=== PATIENT | female | born 2000 | race Caucasian/White ===

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

== ENCOUNTER → 2020-01-21 | Outpatient (CLI) | payer OTHER ==
--- NOTE | 2020-01-21 14:40 | US ---
EXAMINATION TYPE: US OB >= 14 wk fetus DATE OF EXAM: 01/21/2020 COMPARISON: None CLINICAL HISTORY: Z36 Confirm Dates TECHNIQUE: Transabdominal (TA) GESTATIONAL AGE / DATING Physician Established: Not yet established Dates by LMP: LMP unknown Dates by First Scan: No previous this is first scan ( Dates by Current Scan: (15weeks/3 days) EDC: 07/11/2020 SURVEY IUP: Single PLACENTA: Posterior PREVIA: No Previa ADIA: 12cm Normal CERVICAL LENGTH (transabdominal: norm > 3.0cm): 3.5m BIOMETRY PRESENTATION: Vertex LIE: Longitudinal BPD: 3.0m 15weeks / 4 days HC: 11.1 15weeks / 3 days AC: 9.3m 15weeks / 4 days FL: 1.6m 14weeks / 5 days ESTIMATED WEIGHT IN GRAMS: 115rams ESTIMATED WEIGHT IN LBS/OZ: 0 lbs. 4 oz. HC/AC: 1.2 FL/AC: 17% HEART RATE: 146pm RHYTHM: Normal Normal cephalad presentation. No suspicious cervical thinning. No ultrasound evidence for placenta pr evia. Amniotic fluid index calculated within normal limits. biometry measurements congruent and felt within normal limits. heart tones regular and within normal limits. IMPRESSION: As above. Early second trimester live intrauterine gestation noted.
== END | disposition home or self-care (01) ==
LOC: RADUSWWP 13:42
PROVIDERS: ATTEND Obstetrics & Gynecology
DX: Z36.89 Encounter for other specified antenatal screening (principal); Z3A.15 15 weeks gestation of pregnancy
CPT/HCPCS: 76805

== ENCOUNTER 2020-02-18 16:25 | Emergency (ER) | payer OTHER ==
[2020-02-18] MEDS ORDERED: SODIUM CHLORIDE 0.9% 1,000 ML IV STA (17:20)
[2020-02-18 18:27] LABS: Appearance,Urine Cloudy (Clear); Bacteria,Urine Rare /hpf; Bilirubin,Urine Negative (Negative); Blood,Urine Trace (Negative); Color,Urine Yellow; Glucose,Urine (UA) Negative (Negative); Ketones,Urine 3+ (Negative); Leukocyte Esterase,Urine Large (Negative); Mucus,Urine Occasional /hpf; Nitrite,Urine Negative (Negative); Protein,Urine 1+ (Negative); RBC,Urine 11 /hpf (0-5); Specific Gravity,Urine 1.017 (1.001-1.035); Squamous Epithelial Cell,Urine 6 /hpf (0-4); WBC,Urine 151 /hpf (0-5)
[2020-02-18 18:28] LABS: Basophils % (A) 0 %; Eosinophils # (A) 0.2 k/uL (0-0.7); Eosinophils % (A) 2 %; HCT 38.5 % (34.0-46.0); HGB 12.7 gm/dL (11.4-16.0); Lymphocytes # (A) 0.6 k/uL (1.0-4.8); Lymphocytes % (A) 4 %; MCH 28.3 pg (25.0-35.0); MCV 85.9 fL (80.0-100.0); Mean Platelet Volume 7.7; Monocytes # (A) 0.5 k/uL (0-1.0); Monocytes % (A) 4 %; Neutrophils % (A) 90 %; Platelet Count 207 k/uL (150-450); RBC 4.48 m/uL (3.80-5.40); WBC 14.5 k/uL (4.0-11.0)
[2020-02-18 18:39] LABS: INR 0.9 (<1.2); Partial Thromboplastin Time 24.5 sec (22.0-30.0); Prothrombin Time 9.3 sec (9.0-12.0)
[2020-02-18 18:40] LABS: ALT 44 U/L (4-34); AST 47 U/L (14-36); African American GFR (CKD) >90 (>60 ml/min/1.73 sqM); Albumin 3.5 g/dL (3.5-5.0); Alkaline Phosphatase 117 U/L (38-126); Anion Gap 8 mmol/L; Blood Urea Nitrogen 4 mg/dL (7-17); Carbon Dioxide 19 mmol/L (22-30); Chloride 104 mmol/L (98-107); Glucose 95 mg/dL (74-99); Non-African American GFR(CKD) >90 (>60 ml/min/1.73 sqM); Potassium 3.7 mmol/L (3.5-5.1); Sodium 131 mmol/L (137-145); Total Bilirubin 0.6 mg/dL (0.2-1.3); Total Protein 6.6 g/dL (6.3-8.2)
--- NOTE | 2020-02-18 19:11 | US ---
EXAMINATION TYPE: US OB >= 14 wk fetus DATE OF EXAM: 02/18/2020 COMPARISON: Prior ultrasound January 21, 2020 CLINICAL HISTORY: llq pain, LLQ pain x 6 days. Hx . . TECHNIQUE: Transabdominal (TA) GESTATIONAL AGE / DATING Physician Established: (19 weeks/3 days) EDC: 07/11/2020 Dates by LMP: Unknown Dates by First Scan: (19 weeks/3 days) EDC: 07/11/2020 Dates by Current Scan: (19 weeks/1 day) EDC: 07/13/2020 Beta HCG (if available): Not available SURVEY IUP: Single PLACENTA: Posterior PREVIA: No Previa ADIA: 13.17 cm Normal CERVICAL LENGTH (transabdominal: norm > 3.0cm): 3.25 cm BIOMETRY PRESENTATION: Vertex LIE: Longitudinal BPD: 4.34 cm 19 weeks / 1 day HC: 16.64 cm 19 weeks / 2 days AC: 13.82 cm 19 weeks / 2 days FL: 3.02 cm 19 weeks / 2 days ESTIMATED WEIGHT IN GRAMS: 283.87 grams ESTIMATED WEIGHT IN LBS/OZ: 0 lbs. 10 oz. WEIGHT PERCENTAGE BASED ON ESTABLISHED DATES: 36.9% HC/AC: 1.20 Normal FL/AC: 21.84 HEART RATE: 165 bpm RHYTHM: Normal Redemonstration of known second trimester single intrauterine live gestation. No suspicious cervical thinning. Normal cephalad presentation redemonstrated. No ultrasound evidence for placenta previa. Am niotic fluid index calculated within normal limits. biometry measurements congruent and within normal limits with satisfactory interval growth. IMPRESSION: As above.
[2020-02-18] MEDS ORDERED: MORPHINE SULFATE 4 MG/ML SYRINGE IVP STA (19:39)
[2020-02-18] MEDS ORDERED: PHENAZOPYRIDINE 200 MG TAB PO STA (19:39)
[2020-02-18 20:36] VITALS: BP 127/76
--- NOTE | 2020-02-18 20:48 | ED ---
Abdominal Pain HPI - General Chief Complaint: Abdominal Pain Stated Complaint: 19wks preg, abd pain, vomiting Source: patient Mode of arrival: ambulatory Limitations: no limitations - History of Present Illness Initial Comments: The patient is a 20-year-old female with no past medical history who presents to the emergency department with reported left-sided abdominal pain with radiation to her back. Patient states the pain has been present for the past 3 days. She describes it as cramping sensation. Patient is currently 19 weeks . States that on Sunday she did have mild vaginal bleeding without vaginal discharge. Denies dysuria, hematuria or difficulty voiding. Denies diarrhea, constipation, melenic stools or hematochezia. Patient had some nausea with one episode of vomiting today for which she states that it was dark in color and concerning for blood. Patient follows with Dr. Swain. Last ultrasound was at 15 weeks. States she's had no issues with this in regards to vaginal bleeding, hypertension or high blood sugar. She denies ripping or tearing sensation to her back. No numbness, tingling or weakness into her lower extremity. She has not taken any medications for the pain. Denies history of peptic ulcer disease. Does not drink alcohol and denies use of NSAIDs. No fevers or chills. There are no other alleviating, precipitating or modifying factors - Related Data Home Medications Medication Instructions Recorded Confirmed Acetaminophen Tab [Tylenol] 500 mg PO Q4-6H PRN 02/18/20 02/18/20 Previous Rx's Medication Instructions Recorded Cephalexin [Keflex] 500 mg PO Q6HR #40 cap 02/18/20 Allergies Allergy/AdvReac Type Severity Reaction Status Date / Time No Known Allergies Allergy Verified 02/18/20 17:36 Review of Systems ROS Statement: Those systems with pertinent positive or pertinent negative responses have been documented in the HPI. ROS Other: All systems not noted in ROS Statement are negative. Past Medical History Past Medical History: No Reported History History of Any Multi-Drug Resistant Organisms: None Reported Past Surgical History: Orthopedic Surgery, Tonsillectomy Additional Past Surgical History / Comment(s): right wrist and right elbow Past Anesthesia/Blood Transfusion Reactions: No Reported Reaction Past Psychological History: Anxiety, Depression, Schizoaffective Disorder Smoking Status: Current some day smoker Past Alcohol Use History: Occasional Past Drug Use History: None Reported - Past Family History Mother Family Medical History: No Reported History General Exam Limitations: no limitations General appearance: alert, in no apparent distress Head exam: Present: atraumatic, normocephalic, normal inspection Eye exam: Present: normal appearance, PERRL, EOMI. Absent: scleral icterus, conjunctival injection, periorbital swelling ENT exam: Present: normal exam, mucous membranes moist Neck exam: Present: normal inspection. Absent: tenderness, meningismus, lymphadenopathy Respiratory exam: Present: normal lung sounds bilaterally. Absent: respiratory distress, wheezes, rales, rhonchi, stridor Cardiovascular Exam: Present: normal rhythm, tachycardia, normal heart sounds. Absent: systolic murmur, diastolic murmur, rubs, gallop, clicks GI/Abdominal exam: Present: soft, tenderness (left lower quadrant), normal bowel sounds. Absent: distended, guarding, rebound, rigid Extremities exam: Present: normal inspection, full ROM, normal capillary refill. Absent: tenderness, pedal edema, joint swelling, calf tenderness Back exam: Present: normal inspection Neurological exam: Present: alert, oriented X3, CN II-XII intact Psychiatric exam: Present: normal affect, normal mood Skin exam: Present: warm, dry, intact, normal color. Absent: rash Course Vital Signs 02/18/20 02/18/20 02/18/20 16:54 20:35 21:42 Temperature 99.4 F 98.3 F 98.0 F Pulse Rate 124 H 115 H 110 H Respiratory 18 18 20 Rate Blood Pressure 112/67 127/76 O2 Sat by Pulse 97 97 99 Oximetry Medical Decision Making - Medical Decision Making Upon arrival the patient is placed into room 5. A thorough history and physical exam was performed. Peripheral IV was established. Laboratory states were conducted. Patient's white blood cell count mildly elevated at 14.5. Sodium is 131. Urinalysis is positive for 3+ ketones, trace blood, large leukocyte esterase, 11 red blood cells, 151 white blood cells and rare bacteria. I did perform an ultrasound of the patient's pelvis which does demonstrate second trimester single intrauterine gestation. Heart rate of 165. I did give the patient a dose of Rocephin because of her abnormal UA. Patient does have her vitals obtained and that she continues to remain tachycardic. I did recommend hospital admission as I am concerned for pyelonephritis as the patient is reporting flank pain. I'm also concerned about the patient's hematemesis. The patient adamantly refuses admission. I did discuss the risks of leaving including permit disability and to the patient and to her child. Patient understood this. She is able to recite the risks back to me and continues to want to leave. At this time the patient will be discharged home and given a prescription for Keflex. She must call her primary care doctor in the morning for follow-up. If the patient agrees to hospital admission she should return to the emergency room. Patient understood the severity of her symptoms with abnormal vital signs. Patient was then discharged home - Lab Data Result diagrams: 02/18/20 18:10 02/18/20 18:10 Lab Results 02/18/20 02/18/20 02/18/20 Range/Units 18:02 18:10 18:10 WBC 14.5 H (4.0-11.0) k/uL RBC 4.48 (3.80-5.40) m/uL Hgb 12.7 (11.4-16.0) gm/dL Hct 38.5 (34.0-46.0) % MCV 85.9 (80.0-100.0) fL MCH 28.3 (25.0-35.0) pg MCHC 33.0 (31.0-37.0) g/dL RDW 13.0 (11.5-15.5) % Plt Count 207 (150-450) k/uL Neutrophils % 90 % Lymphocytes % 4 % Monocytes % 4 % Eosinophils % 2 % Basophils % 0 % Neutrophils # 13.0 H (1.3-7.7) k/uL Lymphocytes # 0.6 L (1.0-4.8) k/uL Monocytes # 0.5 (0-1.0) k/uL Eosinophils # 0.2 (0-0.7) k/uL Basophils # 0.0 (0-0.2) k/uL PT (9.0-12.0) sec INR (<1.2) APTT (22.0-30.0) sec Sodium 131 L (137-145) mmol/L Potassium 3.7 (3.5-5.1) mmol/L Chloride 104 (98-107) mmol/L Carbon Dioxide 19 L (22-30) mmol/L Anion Gap 8 mmol/L BUN 4 L (7-17) mg/dL Creatinine 0.38 L (0.52-1.04) mg/dL Est GFR (CKD-EPI)AfAm >90 (>60 ml/min/1.73 sqM) Est GFR (CKD-EPI)NonAf >90 (>60 ml/min/1.73 sqM) Glucose 95 (74-99) mg/dL Plasma Lactic Acid Nolan (0.7-2.0) mmol/L Calcium 9.0 (8.4-10.2) mg/dL Total Bilirubin 0.6 (0.2-1.3) mg/dL AST 47 H (14-36) U/L ALT 44 H (4-34) U/L Alkaline Phosphatase 117 (38-126) U/L Total Protein 6.6 (6.3-8.2) g/dL Albumin 3.5 (3.5-5.0) g/dL Lipase 38 (23-300) U/L Urine Color Yellow Urine Appearance Cloudy H (Clear) Urine pH 8.0 (5.0-8.0) Ur Specific [place] 1.017 (1.001-1.035) Urine Protein 1+ H (Negative) Urine Glucose (UA) Negative (Negative) Urine Ketones 3+ H (Negative) Urine Blood Trace H (Negative) Urine Nitrite Negative (Negative) Urine Bilirubin Negative (Negative) Urine Urobilinogen 2.0 (<2.0) mg/dL Ur Leukocyte Esterase Large H (Negative) Urine RBC 11 H (0-5) /hpf Urine WBC 151 H (0-5) /hpf Ur Squamous Epith Cells 6 H (0-4) /hpf Urine Bacteria Rare H (None) /hpf Urine Mucus Occasional H (None) /hpf Blood Type Blood Type Recheck Bld Type Recheck Status 02/18/20 02/18/20 02/18/20 Range/Units 18:10 18:10 18:10 WBC (4.0-11.0) k/uL RBC (3.80-5.40) m/uL Hgb (11.4-16.0) gm/dL Hct (34.0-46.0) % MCV (80.0-100.0) fL MCH (25.0-35.0) pg MCHC (31.0-37.0) g/dL RDW (11.5-15.5) % Plt Count (150-450) k/uL Neutrophils % % Lymphocytes % % Monocytes % % Eosinophils % % Basophils % % Neutrophils # (1.3-7.7) k/uL Lymphocytes # (1.0-4.8) k/uL Monocytes # (0-1.0) k/uL Eosinophils # (0-0.7) k/uL Basophils # (0-0.2) k/uL PT 9.3 (9.0-12.0) sec INR 0.9 (<1.2) APTT 24.5 (22.0-30.0) sec Sodium (137-145) mmol/L Potassium (3.5-5.1) mmol/L Chloride (98-107) mmol/L Carbon Dioxide (22-30) mmol/L Anion Gap mmol/L BUN (7-17) mg/dL Creatinine (0.52-1.04) mg/dL Est GFR (CKD-EPI)AfAm (>60 ml/min/1.73 sqM) Est GFR (CKD-EPI)NonAf (>60 ml/min/1.73 sqM) Glucose (74-99) mg/dL Plasma Lactic Acid Nolan 0.8 (0.7-2.0) mmol/L Calcium (8.4-10.2) mg/dL Total Bilirubin (0.2-1.3) mg/dL AST (14-36) U/L ALT (4-34) U/L Alkaline Phosphatase (38-126) U/L Total Protein (6.3-8.2) g/dL Albumin (3.5-5.0) g/dL Lipase (23-300) U/L Urine Color Urine Appearance (Clear) Urine pH (5.0-8.0) Ur Specific [place] (1.001-1.035) Urine Protein (Negative) Urine Glucose (UA) (Negative) Urine Ketones (Negative) Urine Blood (Negative) Urine Nitrite (Negative) Urine Bilirubin (Negative) Urine Urobilinogen (<2.0) mg/dL Ur Leukocyte Esterase (Negative) Urine RBC (0-5) /hpf Urine WBC (0-5) /hpf Ur Squamous Epith Cells (0-4) /hpf Urine Bacteria (None) /hpf Urine Mucus (None) /hpf Blood Type O Positive Blood Type Recheck O Pos Bld Type Recheck Status No - EKG Data EKG Comments: EKG demonstrates a sinus tachycardia with a ventricular rate of 116. NM interval 122. Carious 88. QTC of 455. No acute ST segment elevations or depressions concerning for ischemic changes Disposition Clinical Impression: Tachycardia, Pyelonephritis affecting , Second trimester Disposition: HOME SELF-CARE Condition: Serious Instructions (If sedation given, give patient instructions): Kidney Infection (ED), Urinary Tract Infection in (ED) Additional Instructions: I strongly recommended hospital admission. I warned you of the risks of leaving against my recommendation. 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 If you do agree to hospital admission please return to the emergency department. Prescriptions: Cephalexin [Keflex] 500 mg PO Q6HR #40 cap Is patient prescribed a controlled substance at d/c from ED?: No Referrals: John Villagomez DO [Primary Care Provider] - 1-2 days Time of Disposition: 21:17
[2020-02-18 21:44] VITALS: PULSE 110; RESP 20; TEMP 98
== END 2020-02-18 21:42 | disposition home or self-care (01) ==
LOC: EC 16:25
DX: O23.02 Infections of kidney in pregnancy, second trimester (principal); O99.332 Smoking (tobacco) complicating pregnancy, second trimester; O99.89 Other specified diseases and conditions complicating pregnancy, childbirth and the puerperium; B96.89 Other specified bacterial agents as the cause of diseases classified elsewhere; R00.0 Tachycardia, unspecified; F17.200 Nicotine dependence, unspecified, uncomplicated; Z3A.19 19 weeks gestation of pregnancy
CPT/HCPCS: 36415; 93005; 86900; 86901; 80053; 83605; 83690; 85025; 85610; 85730; 81001; 87086; 87077; 87186; 76805; 99284; 96365; 96361 ×2; J0696

== ENCOUNTER 2020-07-07 06:13 | Inpatient (IN) | payer OTHER ==
[2020-07-07] MEDS ORDERED: LACTATED RINGERS 1,000 ML IV ONE (06:33)
[2020-07-07] MEDS ORDERED: CITRIC ACID-SODIUM CITRATE 15 ML CUP PO ONE (06:33)
[2020-07-07] MEDS: LACTATED RINGERS 1,000 ML IV SCH ×2 (06:44→17:13)
[2020-07-07 06:56] LABS: Basophils % (A) 0 %; Eosinophils # (A) 0.1 k/uL (0-0.7); Eosinophils % (A) 1 %; HCT 35.5 % (34.0-46.0); HGB 12.2 gm/dL (11.4-16.0); Lymphocytes % (A) 26 %; MCH 26.6 pg (25.0-35.0); MCHC 34.4 g/dL (31.0-37.0); MCV 77.3 fL (80.0-100.0); Mean Platelet Volume 7.8; Monocytes # (A) 0.4 k/uL (0-1.0); Monocytes % (A) 5 %; Neutrophils # (A) 5.1 k/uL (1.3-7.7); Neutrophils % (A) 66 %; Platelet Count 251 k/uL (150-450); RBC 4.59 m/uL (3.80-5.40); RDW 14.2 % (11.5-15.5); WBC 7.8 k/uL (4.0-11.0)
[2020-07-07] MEDS ORDERED: KETOROLAC 15 MG/ML 1 ML VIAL ONE (08:02)
[2020-07-07] MEDS ORDERED: PHENYLEPHRINE-0.9% NACL SYG 1 MG/10 ML SYRINGE ONE (08:02)
[2020-07-07] MEDS ORDERED: ONDANSETRON 4 MG/2 ML VIAL ONE (08:02)
[2020-07-07] MEDS ORDERED: MORPHINE SULFATE (PF) 0.3 MG/0.3 ML SYR ONE (08:02)
[2020-07-07] MEDS ORDERED: OXYTOCIN 10 UNIT/ML 1 ML VIAL ONE (08:02)
[2020-07-07] MEDS ORDERED: ONDANSETRON 4 MG/2 ML VIAL IVP PRN ×2 (08:37→08:45)
[2020-07-07] MEDS ORDERED: diphenhydrAMINE 50 MG/ML 1 ML VIAL IVP PRN ×3 (08:37→08:45)
[2020-07-07] MEDS ORDERED: MORPHINE SULFATE 2 MG/ML SYRINGE IVP PRN (08:37)
[2020-07-07] MEDS ORDERED: NALOXONE 0.4 MG/ML 1 ML VIAL IV PRN ×2 (08:37→08:45)
[2020-07-07] MEDS ORDERED: METOCLOPRAMIDE 5 MG/ML 2 ML VIAL IVP PRN (08:45)
[2020-07-07] MEDS ORDERED: diphenhydrAMINE 25 MG CAP PO PRN (08:45)
[2020-07-07] MEDS ORDERED: ZOLPIDEM 5 MG TAB PO PRN (08:45)
[2020-07-07] MEDS ORDERED: MEASLES-MUMPS-RUBELLA VACC/PF 12,500 UNIT/0.5 ML VIAL SQ ONE (08:45)
[2020-07-07] MEDS ORDERED: diphenhydrAMINE 50 MG CAP PO PRN (08:45)
[2020-07-07] MEDS ORDERED: LACTATED RINGERS 1,000 ML IV SCH (08:45)
[2020-07-07] MEDS ORDERED: KETOROLAC 15 MG/ML 1 ML VIAL IVP PRN (08:45)
--- NOTE | 2020-07-07 08:48 | P.HPOB ---
History of Present Illness H&P Date: 07/07/20 Chief Complaint: Intrauterine uterine at term: Prior section Patient is a 20-year-old at 39 weeks 3 days' gestation who ryes repeat section. Her Precis course has been generally unremarkable and she is to follow very closely throughout the . She voices no complexes morning. Her vital signs are stable and afebrile. Heart regular, lungs clear, extremities without pain. It is noted she is had chlamydial infection that had continued to be positive but was negative on last exam. All questions were answered for her prior to proceeding to the operating room and her risks/benefits/return reviewed with the patient in great detail and she is aware of risks including bleeding and infection, damage to bladder or bowel, vascular injuries, nerve injuries, ureteral injuries potential need for further surgeries. A category 1 tracing is noted prior to proceeding to the operating room. Past Medical History Past Medical History: No Reported History History of Any Multi-Drug Resistant Organisms: None Reported Past Surgical History: Orthopedic Surgery, Tonsillectomy Additional Past Surgical History / Comment(s): right wrist and right elbow Past Anesthesia/Blood Transfusion Reactions: No Reported Reaction Past Psychological History: Anxiety, Depression, Schizoaffective Disorder Smoking Status: Former smoker Past Alcohol Use History: Occasional Past Drug Use History: None Reported - Past Family History Mother Family Medical History: No Reported History Medications and Allergies Home Medications Medication Instructions Recorded Confirmed Type Pnv No.95/Ferrous Fum/Folic AC 1 tab PO ONCE 07/07/20 07/07/20 History [ Multivitamin Tablet] Allergies Allergy/AdvReac Type Severity Reaction Status Date / Time No Known Allergies Allergy Verified 07/07/20 06:32 Exam Osteopathic Statement: *. No significant issues noted on an osteopathic structural exam other than those noted in the History and Physical/Consult. Vital Signs Temp Pulse Resp BP Pulse Ox 07/07/20 06:31 96.4 F L 119 H 16 139/85 98 Intake and Output 07/06/20 07/07/20 07/07/20 22:59 06:59 14:59 Other: Weight 89.358 kg - OBG Physical Exam Breast: both: normal (no masses) Abdomen: bowel sounds normal, no diffuse tenderness, no bruit present, no guarding noted, no hepatomegaly, no splenomegaly, no mass Vulva: both: normal Vagina: normal moisture, no discharge Cervix: no lesion, no discharge Uterus: normal size, normal contour Adnexa: both: normal Anus/Rectum: normal perianal skin, no rectal mass, no hemorrhoids, heme negative Results Result Diagrams: 07/07/20 06:50 Abnormal Lab Results - Last 24 Hours (Table) 07/07/20 Range/Units 06:50 MCV 77.3 L (80.0-100.0) fL
--- NOTE | 2020-07-07 08:52 | P.OP ---
Date of Procedure: 07/07/20 Preoperative Diagnosis: Intrauterine at term: Prior section Postoperative Diagnosis: Same Procedure(s) Performed: Repeat low transverse section Anesthesia: spinal Surgeon: Vlad Swain Executive Cyber Leader #1: Nita Maza Estimated Blood Loss (ml): 520 IV fluids (ml): 1,500 Urine output (ml): 100 Pathology: none sent Condition: stable Disposition: floor Operative Findings: Male scores 8 and 9 at one and 5 minutes and a weight of 7 lbs. 9 oz. Description of Procedure: Patient was taken to the operating suite where a spinal anesthetic was found be adequate. She was prepped and draped in normal sterile fashion and placed in dorsal supine position with leftward tilt. Initially a Pfannenstiel skin incision was made and this incision was then carried through to the underlying layer of the fascia was second knife. Fascia was then nicked in the midline and this opening was extended laterally with Alcaraz scissors. Superior and inferior aspect of this incision were then grasped tented up and bluntly and sharply dissected off the rectus muscles. Rectus muscles were then divided the midline and sharp dissection through the peritoneum was performed. This opening was then extended superiorly and inferiorly with good visualization of both bowel bladder. Bladder blade was then placed and bladder flap identified. It was entered with metastases from scissors carried across face the uterus and bluntly dissected out of the operative field. Knife was then used to incise uterus and this opening was then extended but we following final entry with a hemostat. Head was then atraumatically delivered with clear fluid noted. Mouth and nares were bulb suctioned anterior posterior shoulders were then easily delivered with gentle downward and upward traction followed by the remainder the baby. Umbilical cord was then clamped and cut in usual fashion an nursery personnel was present to assume care. Placenta was then delivered intact and Pitocin was added to the IV. Uterus was then exteriorized cleared of clots and debris and closed in 2 layers with 0 Vicryl suture. Once excellent hemostasis was felt to be obtained blood and debris was suctioned from the posterior cul-de-sac and clots were removed from the gutters. Uterus was then reinserted into the abdomen and peritoneal layer was identified and delineated with hemostats. It was then closed with 0 Vicryl suture. Fascial layer was then closed with 0 Vicryl suture. One layer of 3-0 Vicryl was placed in deep subcuticular tissues to reapproximate skin and close space. Skin was then closed with 3-0 Vicryl subcuticularly. Sponge, lap, needle counts were all correct 2. Patient was then taken to the recovery room stable
[2020-07-07] MEDS ORDERED: FAMOTIDINE 20 MG/2 ML VIAL IV ONE (11:35)
[2020-07-07] MEDS ORDERED: CALCIUM CARBONATE 500 MG CHEWABLE PO PRN (11:35)
[2020-07-07] MEDS: SENNOSIDES-DOCUSATE SODIUM 1 EACH TAB PO SCH (20:01)
[2020-07-08] MEDS: IBUPROFEN 600 MG TAB PO PRN ×2 (02:26→11:50)
--- NOTE | 2020-07-08 08:18 | P.PN ---
Progress Note - Text Progress Note Date: 07/08/20 (666) Anesthesia Postop day 1 Subjective: Status Post with Duramorph. Patient seen and examined. Doing well without complaint. VAS 2 out of 10. No nausea or vomiting. Mild pruritus tolerable.. Afebrile. Gross lower extremity strength intact. Without apparent anesthetic complications. Objective: Vital signs reviewed Heart: Regular Rate Lungs: Good chest excursion Abdomen: Appears nondistended Assessment: Status post with Duramorph postop day 1 Plan: Continue current care with your medical management. Answered all questions
[2020-07-08] MEDS: SENNOSIDES-DOCUSATE SODIUM 1 EACH TAB PO SCH ×2 (08:59→19:37)
[2020-07-08] MEDS: ACETAMINOPHEN TAB 325 MG TAB PO PRN ×3 (09:00→19:37)
--- NOTE | 2020-07-08 09:04 | P.DS ---
Providers Date of admission: 07/07/20 06:13 Expected date of discharge: 07/08/20 Attending physician: Vlad Swain Primary care physician: Stated None Hospital Course: Huong is doing very well postop day 1. She is requesting discharge to home. We'll monitor through today and assuming that she continues to do well plan discharged to home later today. Prescriptions for pain medication were 4 to the pharmacy of a breast pump was provided. Discharge instructions were thoroughly reviewed and all questions were answered for on her vital signs are stable and afebrile. Heart regular, lungs clear, extremities without pain. Abdomen soft uterus is firm and her incision is clean dry and intact. Assessment postop day 1. Plan discharged home follow up with me in 1 week. Patient Condition at Discharge: Good Plan - Discharge Summary New Discharge Prescriptions: New Ibuprofen [Motrin] 600 mg PO Q6HR PRN #30 tab PRN Reason: Pain HYDROcodone/APAP 5-325MG [[place] 5-325] 1 tab PO Q4HR PRN #30 tab PRN Reason: Pain No Action Pnv No.95/Ferrous Fum/Folic AC [ Multivitamin Tablet] 1 tab PO ONCE Discharge Medication List Pnv No.95/Ferrous Fum/Folic AC [ Multivitamin Tablet] 1 tab PO ONCE 07/07/20 [History] HYDROcodone/APAP 5-325MG [[place] 5-325] 1 tab PO Q4HR PRN #30 tab 07/08/20 [Rx] Ibuprofen [Motrin] 600 mg PO Q6HR PRN #30 tab 07/08/20 [Rx] Follow up Appointment(s)/Referral(s): Vlad Swain DO [Doctor of Osteopathic Medicine] - 1 Week Activity/Diet/Wound Care/Special Instructions: Lifting, limit stairs and driving, and pelvic rest. If any high temperatures, heavy bleeding, or severe pain call my office Discharge Disposition: HOME SELF-CARE
[2020-07-08 09:27] LABS: Basophils % (A) 0 %; Eosinophils # (A) 0.2 k/uL (0-0.7); Eosinophils % (A) 2 %; HCT 35.2 % (34.0-46.0); HGB 11.6 gm/dL (11.4-16.0); Lymphocytes # (A) 2.3 k/uL (1.0-4.8); Lymphocytes % (A) 23 %; MCH 26.3 pg (25.0-35.0); MCHC 33.1 g/dL (31.0-37.0); MCV 79.7 fL (80.0-100.0); Mean Platelet Volume 7.9; Monocytes # (A) 0.6 k/uL (0-1.0); Monocytes % (A) 6 %; Neutrophils % (A) 68 %; Platelet Count 212 k/uL (150-450); RBC 4.42 m/uL (3.80-5.40); RDW 14.5 % (11.5-15.5); WBC 10.2 k/uL (4.0-11.0)
[2020-07-08] MEDS: HYDROcodone/APAP 7.5-325MG 1 EACH TAB PO PRN (17:39)
[2020-07-08 23:33] VITALS: TEMP 98
[2020-07-09] MEDS: IBUPROFEN 600 MG TAB PO PRN ×2 (00:50→08:14)
[2020-07-09 09:10] VITALS: BP 141/86; PULSE 83
[2020-07-09] MEDS: SENNOSIDES-DOCUSATE SODIUM 1 EACH TAB PO SCH (09:15)
[2020-07-09 10:16] VITALS: RESP 16
[2020-07-09] MEDS: HYDROcodone/APAP 7.5-325MG 1 EACH TAB PO PRN (10:35)
== END 2020-07-09 11:54 | disposition home or self-care (01) | DRG 788 ==
LOC: 4FBP 06:13
PROVIDERS: ADMIT Obstetrics & Gynecology; ATTEND Obstetrics & Gynecology
PROC: 10D00Z1 Extraction of Products of Conception, Low, Open Approach (ICD-10-PCS; principal; 2020-07-07 08:00)
DX: O34.211 Maternal care for low transverse scar from previous cesarean delivery (principal); O99.344 Other mental disorders complicating childbirth; F25.9 Schizoaffective disorder, unspecified; F32.9 Major depressive disorder, single episode, unspecified; F41.9 Anxiety disorder, unspecified; O98.819 Other maternal infectious and parasitic diseases complicating pregnancy, unspecified trimester; L29.9 Pruritus, unspecified; Z37.0 Single live birth; Z3A.39 39 weeks gestation of pregnancy; Z87.891 Personal history of nicotine dependence; Z90.89 Acquired absence of other organs
CPT/HCPCS: 85025; 86850; 86900; 86901

== ENCOUNTER → 2022-03-27 | Outpatient (CLI) | payer OTHER ==
--- NOTE | 2022-03-27 18:26 | US ---
EXAMINATION TYPE: Ultrasound OB <= 14 week fetus DATE OF EXAM: 03/27/2022 3:51 PM COMPARISON: 08/07/2018 CLINICAL HISTORY: 22-year-old female Z36.89 GESTATIONAL AGE CONFIRMATION. Confirm Dates EXAM PERFORMED: Transabdominal (TA) FINDINGS: EXAM MEASUREMENTS: GESTATIONAL AGE / DATING Physician Established: (12 weeks/0 days) EDC: 10/09/2022 Dates by LMP: LMP unknown Dates by First Scan: No previous this is first scan Dates by Current Scan for: (12 weeks/0 days) EDC: 10/09/2022 MATERNAL ANATOMY Uterus: 11.5 x 7.3 x 8.8 cm Right Ovary: 3.6 x 2.0 x 3.6 cm. Echogenic focus within right Ovary= 0.9 x 0.6 x 0.9 cm could repres ent a calcification or a small ovarian dermoid. Left Ovary: 3.9 x 3.4 x 4.8 cm Post CDS / Adnexa: wnl Presence of free fluid: No Presence of corpus luteal cyst: Possibly in the left ovary: Cystic lesion with septation= 3.9 x 2.7 x 3.7 cm Presence of subchorionic bleed: No GESTATION / SURVEY CRL: 5.4 cm (12 weeks/0 days) MSD: wnl Heart Rate: 162 bpm Rhythm: Normal IUP: Viable IUP Nuchal Translucency 10-14wks (normal less than 3mm): 1mm Age Appropriate Anatomy Limbs: Visualized IMPRESSION: 1. Single live anterior with established gestational age of 12 weeks 0 days. Current ultras ound biometry is exactly concordant. 2. A septated cyst measuring 3.9 cm within the left ovary. Possible corpus luteum. Short interval fol low-up to ensure involution. 3. A 9 mm echogenic focus within the right ovary could represent a calcification or small ovarian anastasia moid. 4. Complete survey recommended at 18-20 weeks.
== END | disposition home or self-care (01) ==
LOC: RADUSWWP 15:33
PROVIDERS: ATTEND Obstetrics & Gynecology
DX: Z36.89 Encounter for other specified antenatal screening (principal); Z3A.12 12 weeks gestation of pregnancy
CPT/HCPCS: 76801; 76813

== ENCOUNTER 2022-05-26 17:15 | Outpatient (CLI) | payer OTHER ==
[2022-05-26 18:10] LABS: Appearance,Urine Cloudy (Clear); Bacteria,Urine Few /hpf; Bilirubin,Urine Negative (Negative); Blood,Urine Negative (Negative); Color,Urine Yellow; Glucose,Urine (UA) Negative (Negative); Ketones,Urine 2+ (Negative); Leukocyte Esterase,Urine Trace (Negative); Mucus,Urine Rare /hpf; Nitrite,Urine Negative (Negative); PH, Urine 7.5 (5.0-8.0); Protein,Urine Negative (Negative); RBC,Urine 1 /hpf (0-5); Specific Gravity,Urine 1.013 (1.001-1.035); Squamous Epithelial Cell,Urine 3 /hpf (0-4); WBC,Urine 6 /hpf (0-5)
[2022-05-26] MEDS ORDERED: ACETAMINOPHEN TAB 500 MG TAB PO STA (18:46)
[2022-05-26] MEDS: LACTATED RINGERS 1,000 ML IV SCH ×2 (18:59→20:56)
[2022-05-26 20:48] VITALS: BP 145/68; PULSE 136; RESP 18; TEMP 98.1
--- NOTE | 2022-05-27 09:35 | P.MSEPDOC ---
Presenting Problems - Arrival Data Date of Arrival on Unit: 05/26/22 Time of Arrival on Unit: 17:15 Mode of Transport: Ambulatory - Complaint OB-Reason for Admission/Chief Complaint: Pain Comment: Lower back pain x 1.5mths, leg cramping-primarily in calves and radiates to thighs c\movement. Pain in back increases with movement. Pt states back pain has been gradually increasing. Medical History - Information : 3 Para: 2 Term: 2 : 0 Number of Living Children: 2 - Gestational Age Gestational Age by JASON (wks/days): 20 Weeks and 4 Days Review of Systems - Review of Systems Constitutional: No problems Breast: No problems ENT: No problems Cardiovascular: No problems Respiratory: No problems Gastrointestinal: No problems Genitourinary: No problems Musculoskeletal: No problems Neurological: No problems Skin: No problems Vital Signs - Temperature Temperature: 98.1 F Temperature Source: Temporal Artery Scan - Pulse Right Pulse Oximetery Pulse Rate: 136 Pulse Assessment Method: Pulse Oximetry - Respirations Respiratory Rate: 18 Oxygen Delivery Method: Room Air O2 Sat by Pulse Oximetry: 97 - Blood Pressure Right Arm Sitting Blood Pressure: 145/68 Blood Pressure Mean: 93 Blood Pressure Source: Automatic Cuff Physician Notification - Physician Notified Physician Notified Date: 05/26/22 Physician Notified Time: 17:52 Physician: Nita Maza Order Received: Yes - Notification Comment Comment: Spk c\Dr. Maza; reported , 20 3/, c/o lower back pain, centered x 1.5m,. worsening since last OB office visit, leg pain, primarily in calves that radiates to. thighs with movement. Reviewed pts BPs and pulse since arriving to triage, pt visibly. uncomfortable with movement and reclined positions, difficulty sitting foward. Orders. rec'd to send UA, if WNL, may be d/c home, has OB office visit scheduled Sunday. Review. stretches, animal care provider/massage therapy and yoga stretches to assit with muscle stretching and. relaxation. *[id number]-Paged Dr. Maza, returned call; reviewed UA results, orders rec'd for 1L LR bolus and PO tylenol. Encourage pt to increase PO hydration. Pt may be dc after fluid administration. Maternal Triage Index - Maternal Triage Index Presenting for scheduled procedure w/no complaint: No - Stat/Priority 1 Stat Priority 1: No - Urgent/Priority 2 Urgent Priority 2: No - Prompt/Priority 3 Prompt Priority 3: No - Non-Urgent/Priority 4 Non-Urgent Priority 4: Yes Criteria Met for Priority 4: Pain Disposition - Disposition OB Disposition: Discharge to home, Written follow up instructions reviewed Discharge Date: 05/26/22 Discharge Time: 19:30 I agree with the RN Medical Screening Exam: Yes Case reviewed; plan agreed upon as documented in EMR&OBIX.: Yes Diagnosis: LOW BACK PAIN, UNSPECIFIED Additional Diagnoses: Dehydration
== END 2022-05-26 19:50 | disposition home or self-care (01) ==
LOC: FBPOP 17:15
PROVIDERS: ATTEND Obstetrics & Gynecology
DX: O99.891 Other specified diseases and conditions complicating pregnancy (principal); M54.50 Low back pain, unspecified; E86.0 Dehydration; Z3A.20 20 weeks gestation of pregnancy
CPT/HCPCS: 96360; 81001; G0463; 99214

== ENCOUNTER 2022-07-21 15:17 | Outpatient (CLI) | payer BC, OTHER ==
[2022-07-21 17:48] VITALS: BP 132/65; PULSE 102; RESP 18; TEMP 97.2
--- NOTE | 2022-07-22 06:52 | P.MSEPDOC ---
Presenting Problems - Arrival Data Date of Arrival on Unit: 07/21/22 Time of Arrival on Unit: 15:17 Mode of Transport: Ambulatory - Complaint OB-Reason for Admission/Chief Complaint: Decreased Movement Medical History - Information : 3 Para: 2 Term: 2 : 0 Abortions: Spontaneous or Elective: 0 Number of Living Children: 2 - Gestational Age Gestational Age by JASON (wks/days): 28 Weeks and 6 Days - History Complications: GDM Review of Systems - Review of Systems Constitutional: No problems Breast: No problems ENT: No problems Cardiovascular: No problems Respiratory: No problems Gastrointestinal: No problems Genitourinary: No problems Musculoskeletal: No problems Neurological: No problems Skin: No problems Vital Signs - Temperature Temperature: 97.2 F Temperature Source: Temporal Artery Scan - Pulse Right Pulse Oximetery Pulse Rate: 102 Pulse Assessment Method: Pulse Oximetry - Respirations Respiratory Rate: 18 Oxygen Delivery Method: Room Air O2 Sat by Pulse Oximetry: 99 - Blood Pressure Right Arm Blood Pressure: 132/65 Blood Pressure Mean: 87 Blood Pressure Source: Automatic Cuff Medical Screen Scoring - Uterine Contractions Frequency From (mins): 0 Frequency To (mins): 0 - Assessment - Baby A Baseline FHR: 150 Heart Rate - NICHD Category: Category I (Normal) NST: Reactive Physician Notification - Physician Notified Physician Notified Date: 07/21/22 Physician Notified Time: 17:12 Physician: Nita Maza Order Received: Yes (reported to Dr bernadette BOYD, 28 6/7 weeks gestation, patient discharged elder) Maternal Triage Index - Stat/Priority 1 Stat Priority 1: No - Urgent/Priority 2 Urgent Priority 2: Yes Provider Notified: Nita Maza Provider Notified Time: 17:12 Criteria Met for Priority 2: Pt concerns for decreased movement. Disposition - Disposition OB Disposition: Discharge to home Discharge Date: 07/21/22 Discharge Time: 17:16 I agree with the RN Medical Screening Exam: Yes Case reviewed; plan agreed upon as documented in EMR&OBIX.: Yes Diagnosis: DECREASED MOVEMENTS, THIRD TRIMESTER, UNSP
== END 2022-07-21 17:16 | disposition home or self-care (01) ==
LOC: FBPOP 15:17
PROVIDERS: ATTEND Obstetrics & Gynecology
DX: O36.8130 Decreased fetal movements, third trimester, not applicable or unspecified (principal); Z3A.28 28 weeks gestation of pregnancy; Z87.891 Personal history of nicotine dependence
CPT/HCPCS: 59025; G0463; 99213